=== PATIENT | male | born 1965 | race Caucasian/White ===

== ENCOUNTER 2023-10-24 21:05 | Emergency (ER) | payer OTHER ==
[~2023-10-24] VITALS: Ht 180.3 cm; Wt 158.1 kg
[2023-10-24 22:04] LABS: Urine Bacteria NONE SEEN /hpf (None Seen); Urine Blood Negative /uL (Negative); Urine Clarity Clear (Clear); Urine Color Yellow (Yellow); Urine Mucus FEW (None Seen); Urine Protein, UAD Negative (Negative); Urine Specific Gravity 1.028 (1.001-1.035); Urine Urobilinogen Normal (Negative); Urine WBC 1 /hpf (0 - 3); Urine pH 5.5 (5.0-8.0)
[2023-10-24 23:05] LABS: Basophils # (auto) 0.1 10 ^3/uL (0-0.2); Basophils % (auto) 0.6 % (0.0-2.0); Eosinophils # (auto) 0.3 10 ^3/uL (0-0.8); Eosinophils % (auto) 2.5 % (0.0-7.0); Hematocrit 46.8 % (41.0-53.0); Hemoglobin 15.5 g/dL (13.5-17.5); Lymphocytes # (auto) 4.4 10 ^3/uL (0.4-5.4); Lymphocytes % (auto) 36.9 % (10.0-50.0); Mean Corpuscular Hgb Conc. 33.2 g/dL (32.0-36.0); Mean Corpuscular Volume 90.4 fL (80.0-100.0); Monocytes # (auto) 0.8 10 ^3/uL (0-1.3); Monocytes % (auto) 6.4 % (0.0-12.0); Neutrophils # (auto) 6.4 10 ^3/uL (1.6-8.6); Neutrophils % (auto) 53.6 % (37.0-80.0); Nucleated Red Blood Cells % 0.2 %; Red Blood Cells 5.18 10^6/uL (4.5-5.90); Red Cell Distribution Width 13.1 % (11.8-14.3)
[2023-10-24 23:22] LABS: Alanine Aminotransferase 28 U/L (7-40); Albumin 4.5 g/dL (3.2-4.8); Alkaline Phosphatase 61 U/L (46-116); Anion Gap 6 (5-15); Aspartate Aminotransferase 22 U/L (13-40); Bilirubin, Total 0.7 mg/dL (0.2-1.0); Blood Urea Nitrogen 14 mg/dL (9-23); Carbon Dioxide 27 mmol/L (20-30); Chloride 106 mmol/L (98-107); Glucose 101 mg/dL (74-106); Potassium 4.1 mmol/L (3.5-5.1); Sodium 139 mmol/L (136-145)
[2023-10-24 23:23] LABS: Total Protein 6.8 g/dL (5.7-8.2)
[2023-10-25] MEDS ORDERED: LEVO500T91 PO (00:33)
[2023-10-25 00:53] VITALS: BP 125/99; PULSE 79; RESP 17; O2SAT 96
[2023-10-25] MEDS: KETOROLAC TROMETH 60MG/2ML VIAL IM ONE (01:00)
== END 2023-10-25 00:59 | disposition home or self-care (01) ==
LOC: ER 21:05
DX: N45.1 Epididymitis (principal); Z88.8 Allergy status to other drugs, medicaments and biological substances; Z91.09 Other allergy status, other than to drugs and biological substances
CPT/HCPCS: 36415; 76870; 80053; 81001; 85025; 96372; 99285; J1885

== ENCOUNTER 2025-04-09 08:40 | Emergency (ER) | payer OTHER ==
[~2025-04-09] VITALS: Ht 180.3 cm; Wt 136.5 kg
[~2025-04-09 08:40] MED LIST: LEVO500T91 PO
--- NOTE | 2025-04-09 09:13 | ED.PDOC ---
Sherif. trauma (HPI) HPI Comments A 59 YEAR OLD MALE PRESENTS TO THE ED WITH COMPLAINT OF RIGHT HIP PAIN, RIGHT KNEE PAIN, LEFT WRIST PAIN, AND RIGHT ANKLE PAIN STATUS POST FALL. PATIENT STATES HE ACCIDENTALLY SLIPPED ON WATER WHILE AT HOME DEPOT EARLIER TODAY AND LANDED ON THE RIGHT SIDE OF HIS BODY. PATIENT REPORTS HE IS NOW EXPERIENCING RIGHT HIP PAIN, RIGHT KNEE PAIN, RIGHT ANKLE PAIN AND LEFT WRIST PAIN THAT IS WORSE WITH MOVEMENT. PATIENT DENIES HEAD INJURY, NECK INJURY, LOC, FEVER, CHILLS, SHORTNESS OF BREATH, CHEST PAIN, ABDOMINAL PAIN, NAUSEA, VOMITING, HEADACHE, OR OTHER COMPLAINTS. NO OTHER SYMPTOMS OR MODIFYING FACTORS AT THIS TIME. PATIENT IS ALERT, ORIENTED X 4, AND HAS STEADY GAIT. Chief Complaint: Fall Injury Time Seen by MD: 08:49 Primary Care Provider: MICHAELIES Reviewed notes: Nurses Notes, Medications, Allergies Allergies: Coded Allergies: Acetaminophen (Verified Allergy, Unknown, 10/24/23) Dextromethorphan (Verified Allergy, Unknown, 10/24/23) Doxylamine (Verified Allergy, Unknown, 10/24/23) Ethanol (Verified Allergy, Unknown, 10/24/23) Pseudoephedrine (Verified Allergy, Unknown, 10/24/23) Home Meds Active Scripts Levofloxacin Hemihydrate (LEVOFLOXACIN) 500 Mg Tab, 1 TAB PO DAILY for 10 Days, #10 TAB Prov:BUSTER RUIZ [facility] 10/25/23 Information Source: Patient Mode of Arrival: Wheelchair Severity: Moderate Timing: Hours Duration: Since onset, Hours Prehospital treatment: None Location: (R) Ankle, (R) Hip, (R) Knee, (L) Wrist, Other (RIGHT HIP) Location of laceration: None Mechanism: Fall Associated signs and symtoms: None Past Medical History PAST MEDICAL HISTORY: HTN Surgical History: Denies all surgeries Family History Family History: Reviewed,noncontributory to illness, No family hx of Cancer, No family hx of DM, No family hx of Heart emir, No family hx of HTN, No family hx ofKidney emir, No family hx of Liver emir, No family hx of Lung emir, No family hx of Stroke Social History Smoker: Non-Smoker Alcohol: Denies ETOH Use Drugs: Denies Drug Use Lives In: Home Constitutional: denies: chills, diaphoresis, fatigue, fever, malaise, sweats, weakness, others EENTM: denies: blurred vision, double vision, ear bleeding, ear discharge, ear drainage, ear pain, ear ringing, eye pain, eye redness, hearing loss, mouth pain, mouth swelling, nasal discharge, nose bleeding, nose congestion, nose pain, photophobia, tearing, throat pain, throat swelling, voice changes, others Respiratory: denies: cough, hemoptysis, orthopnea, SOB at rest, shortness of breath, SOB with excertion, stridor, wheezing, others Cardiovascular: denies: chest pain, dizzy spells, diaphoresis, Dyspnea on exertion, edema, irregular heart beat, left arm pain, lightheadedness, palpitations, PND, syncope, others Gastrointestinal: denies: abdomen distended, abdominal pain, blood streaked bowels, constipated, diarrhea, dysphagia, difficulty swallowing, hematemesis, melena, nausea, poor appetite, poor fluid intake, rectal bleeding, rectal pain, vomiting, others Genitourinary: denies: burning, dysuria, flank pain, frequency, hematuria, incontinence, penile discharge, penile sore, pain, testicle pain, testicle swelling, urgency, others Neurological: denies: dizziness, fainting, headache, left sided numbness, left sided weakness, numbness, paresthesia, pre-existing deficit, right sided numbness, right sided weakness, seizure, speech problems, tingling, tremors, weakness, others Musculoskeletal: reports: joint pain, joint swelling, muscle pain, others (RIGHT HIP PAIN, RIGHT KNEE PAIN, RIGHT ANKLE PAIN, LEFT WRIST PAIN); denies: back pain, gout, muscle stiffness, neck pain Integumetry: denies: bruises, change in color, change in hair/nails, dryness, laceration, lesions, lumps, rash, wounds, others Allergic/Immunocompromised: denies: Difficulty Healing, Frequent Infections, Hives, Itching, others Hematologic/Lymphatic: denies: anemia, blood clots, easy bleeding, easy bruising, swollen glands, others Endocrine: denies: excessive hunger, excessive sweating, excessive thirst, excessive urination, flushing, intolerance to cold, intolerance to heat, unexplained weight gain, unexplained weight loss, others Psychiatric: denies: anxiety, bipolar disorder, depression, hopeless, panic disorder, schizophrenia, sleepless, suicidal, others All Other Systems: Reviewed and Negative Physical Exam General Appearance: Mild Distress, Obese HEENT: Normal ENT Inspection, PERRL/EOMI, Pharynx Normal, TMs Normal Neck: Full Range of Motion, Non-Tender, Normal, Normal Inspection Respiratory: Chest Non-Tender, Lungs Clear, No Accessory Muscle Use, No Respiratory Distress, Normal Breath Sounds Cardiovascular: No Edema, No JVD, No Murmur, No Gallop, Normal Peripheral Pulses, Regular Rate/Rhythm Breast Exam: Deferred Gastrointestinal: No Organomegaly, Non Tender, No Pulsatile Mass, Normal Bowel Sounds, Soft Genitalia: Deferred Pelvic: Deferred Rectal: Deferred Extremities: Decreased range of motion, No calf tenderness, Normal capillary refill, No pedal edema, Swelling (TENDERNESS AND SWELLING ON RIGHT KNEE AND RIGHT KNEE, NO BONY TENDERNESS AND DEFORMITY. ), Tender (TENDERNESS ON LEFT WRIST AND RIGHT HIP, NO BONY TENDERNESS, SWELLING AND DEFORMITY. ) Musculoskeletal : Apperance: Normal Neurologic: Alert, nursery school attendant II-XII nml as Tested, No Motor Deficits, Normal Affect, Normal Mood, No Sensory Deficits Cerebellar Function: Normal Reflexes: Normal Skin: Dry, Normal Color, Warm Peripheral Pulses: 2+ carotid (R), 2+ carotid (L), 2+ dorsalis pedis (R), 2+ dorsalis pedis (L) Lymphatic: No Adenopathy Was a procedure done? Was a procedure done?: No Differential Diagnosis Multiple Trauma: Fractures, Contusion, Other (MUSCLE STRAIN, SPRAIN) Neck Injury: N/A X-Ray, Labs, Meds, VS Vital Signs Date Time Temp Pulse Resp B/P (MAP) Pulse Ox O2 Delivery O2 Flow Rate FiO2 04/09/25 09:48 93 16 94 Room Air 04/09/25 09:48 98.1 93 16 158/81 (106) 94 98.1 04/09/25 08:41 98.4 96 18 150/93 96 98.4 Current Medications Medications (Trade) Dose Ordered Sig/Sylvia Route Start Time Stop Time Status Last Admin Ketorolac Tromethamine (Toradol Injection) 60 mg ONCE ONCE IM 04/09/25 10:15 04/09/25 10:16 DC 04/09/25 10:13 CLINICAL INDICATION: FALL; pain TECHNIQUE: 3 radiographic views of the left wrist were obtained. Comparison: None FINDINGS/IMPRESSION: There is no evidence of acute fracture or dislocation. The visualized joint space is well maintained. The alignment is anatomical. There is no radiopaque foreign body. ATED BY: PILI LLANES MD DICTATED DATE/TIME: 04/09/2547 SIGNED BY: PILI LLANES MD SIGNED DATE/TIME: 04/09/2547 CC: CLINICAL INDICATION: pain; FALL TECHNIQUE: 3 radiographic views of the right knee were obtained. Comparison: None FINDINGS/IMPRESSION: There is no evidence of acute fracture or dislocation. The visualized joint space is well maintained. The alignment is anatomical. There is no radiopaque foreign body. ATED BY: PILI LALNES MD DICTATED DATE/TIME: 04/09/2550 SIGNED BY: PILI LLANES MD SIGNED DATE/TIME: 04/09/2550 CC: CLINICAL INDICATION: pain; FALL TECHNIQUE: 1 radiographic views of the pelvis and 2 views of the right hip were obtained. Comparison: None FINDINGS/IMPRESSION: There is no evidence of acute fracture or dislocation. 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 ATED BY: PILI LLANES MD DICTATED DATE/TIME: 04/09/25950 SIGNED BY: PILI LLANES MD SIGNED DATE/TIME: 04/09/25950 CC: CLINICAL INDICATION: Pain TECHNIQUE: 3 radiographic views of the right ankle were obtained. Comparison: None FINDINGS/IMPRESSION: There is no evidence of acute fracture or dislocation. Soft tissue swelling about the right ankle. The visualized joint space is well maintained. The alignment is anatomical. There is no radiopaque foreign body. ATED BY: PILI LLANES MD DICTATED DATE/TIME: 04/09/2557 SIGNED BY: PILI LLANES MD SIGNED DATE/TIME: 04/09/25956 CC: X-Ray, Labs, Meds, VS Comment EXTERNAL MEDICAL RECORDS REVIEWED: [NONE] INDEPENDENT HISTORIANS: [NONE] SOCIAL DETERMINANTS OF HEALTH: [NONE] LABS ORDERED: NONE REVIEWED AND INTERPRETED RESULTS: NONE IMAGING ORDERED: XR HIP RT, XR ANKLE RT, XR KNEE RT, XR WRIST LT TREATMENTS ORDERED: TORADOL 60MG IM PROCEDURES PERFORMED: NONE CRITICAL CARE TIME: NONE I HAVE DISCUSSED THE PATIENT WITH THE ATTENDING PHYSICIAN DR. DYKES AND HE AGREES WITH THE PATIENT'S PLAN OF CARE AND DISPOSITION. BASED ON HISTORY OF PRESENT ILLNESS, AND PHYSICAL EXAM, PATIENT WILL BE DISCHARGED HOME. PT DECLINED PAIN RX. SHARED DECISION MAKING: PATIENT INSTRUCTED TO FOLLOW UP WITH PRIMARY CARE PROVIDER IN 1-2 DAYS FOR RE-EVALUATION OF SYMPTOMS. PATIENT VERBALIZES UNDERSTANDING TO RETURN TO ED FOR NEW OR WORSENING SYMPTOMS OR IF FOLLOW UP WITH PCP CANNOT BE OBTAINED. PATIENT FEELS COMFORTABLE GOING HOME AT THIS TIME. ALL QUESTIONS ADDRESSED AT TIME OF DISCHARGE. Images Reviewed?: Images reviewed and evaluated by me Time of 1ST Reevaluation: 11:30 Reevaluation 1ST: Improved Patient Education/Counseling: Diagnosis, Treatment, Need For Follow Up Family Education/Counseling: Diagnosis, Treatment, Need For Follow Up Medical Screening: No EMC Exist At This Time Departure 1 Departure Time of Disposition: 11:30 Impression: Primary Impression: Strain of muscle of right hip Qualified Codes: S76.011A - Strain of muscle, fascia and tendon of right hip, initial encounter Additional Impressions: Sprain of right knee Qualified Codes: S83.91XA - Sprain of unspecified site of right knee, initial encounter Sprain of right ankle Qualified Codes: S93.401A - Sprain of unspecified ligament of right ankle, initial encounter Sprain of left wrist Qualified Codes: S63.502A - Unspecified sprain of left wrist, initial encounter Status post fall Disposition: 01 HOME / SELF CARE / HOMELESS Condition: Stable Additional Instructions: FOLLOW-UP WITH PCP IN 1 TO 2 DAYS. TAKE MEDICATIONS PRESCRIBED. RETURN TO ED FOR ANY NEW OR WORSENING SYMPTOMS. Discharged With: Self, Relative Critical Care Note Critical Care Time?: No Stability Stability form required: No I personally scribed for RUBY NAYAK ([email or web address]) on 04/09/25 at 09:13. Electronically submitted by Librado Michaud ([email or web address]). I personally scribed for RUBY NAYAK ([email or web address]) on 04/09/25 at 09:16. Electronically submitted by Librado Michaud ([email or web address]). I personally scribed for RUBY NAYAK ([email or web address]) on 04/09/25 at 10:14. Electronically submitted by Librado Michaud ([email or web address]). RUBY NAYAK Apr 09, 2025 09:13
[2025-04-09 09:48] VITALS: BP 158/81; PULSE 93; RESP 16; TEMP 98.1; O2SAT 94
--- NOTE | 2025-04-09 09:50 | DVH ---
CLINICAL INDICATION: FALL; pain TECHNIQUE: 3 radiographic views of the left wrist were obtained. Comparison: None FINDINGS/IMPRESSION: There is no evidence of acute fracture or dislocation. The visualized joint space is well maintained. The alignment is anatomical. There is no radiopaque foreign body.
--- NOTE | 2025-04-09 09:53 | DVH ---
CLINICAL INDICATION: pain; FALL TECHNIQUE: 3 radiographic views of the right knee were obtained. Comparison: None FINDINGS/IMPRESSION: There is no evidence of acute fracture or dislocation. The visualized joint space is well maintained. The alignment is anatomical. There is no radiopaque foreign body.
--- NOTE | 2025-04-09 09:53 | DVH ---
CLINICAL INDICATION: pain; FALL TECHNIQUE: 1 radiographic views of the pelvis and 2 views of the right hip were obtained. Comparison: None FINDINGS/IMPRESSION: There is no evidence of acute fracture or dislocation. 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
--- NOTE | 2025-04-09 09:59 | DVH ---
CLINICAL INDICATION: Pain TECHNIQUE: 3 radiographic views of the right ankle were obtained. Comparison: None FINDINGS/IMPRESSION: There is no evidence of acute fracture or dislocation. Soft tissue swelling about the right ankle. The visualized joint space is well maintained. The alignment is anatomical. There is no radiopaque foreign body.
[2025-04-09] MEDS: KETOROLAC TROMETH 60MG/2ML VIAL IM ONE (10:13)
== END 2025-04-09 10:35 | disposition home or self-care (01) ==
LOC: ER 08:40
DX: S76.011A Strain of muscle, fascia and tendon of right hip, initial encounter (principal); S63.592A Other specified sprain of left wrist, initial encounter; S93.491A Sprain of other ligament of right ankle, initial encounter; S83.8X1A Sprain of other specified parts of right knee, initial encounter; I10 Essential (primary) hypertension; Z88.8 Allergy status to other drugs, medicaments and biological substances; W01.0XXA Fall on same level from slipping, tripping and stumbling without subsequent striking against object, initial encounter; Y93.89 Activity, other specified; Y92.89 Other specified places as the place of occurrence of the external cause; Y99.8 Other external cause status
CPT/HCPCS: 73110; 73502; 73562; 73610; 96372; 99284; J1885

== ENCOUNTER 2025-08-12 10:41 | Emergency (ER) | payer OTHER ==
[~2025-08-12] VITALS: Ht 180.3 cm; Wt 176.9 kg
[2025-08-12 10:45] VITALS: TEMP 98.5
--- NOTE | 2025-08-12 12:44 | ED.PDOC ---
Musculoskeletal HPI Comments A 59 YEAR OLD MALE PRESENTS TO THE ED WITH COMPLAINT OF RIGHT KNEE PAIN . PATIENT STATES HE HAS BEEN HAVING RIGHT KNEE PAIN FOR THE PAST 3 MONTHS AFTER SLIP AND FALL AT HOME DEPOT. PATIENT STATES THAT SINCE THE INJURY HE HAD AN MRI IN THE RIGHT KNEE WHICH SHOWED MULTIPLE TEARS AND A HEMATOMA. PATIENT STATES HE CAME TO THE ED TODAY DUE TO PERSISTENT AND WORSENING PAIN TO THE RIGHT KNEE. PATIENT DENIES FEVER, CHILLS, SHORTNESS OF BREATH, CHEST PAIN, ABDOMINAL PAIN, NAUSEA, VOMITING, HEADACHE, OR OTHER COMPLAINTS. NO OTHER SYMPTOMS OR MODIFYING FACTORS AT THIS TIME. PATIENT IS ALERT, ORIENTED X 4, AND HAS STEADY GAIT. Chief Complaint: Lower Extremity Time Seen by MD: 12:39 Primary Care Provider: DENIES Reviewed Notes: Nurses Notes, Medications, Allergies Allergies: Coded Allergies: Acetaminophen (Verified Allergy, Unknown, 10/24/23) Dextromethorphan (Verified Allergy, Unknown, 10/24/23) Doxylamine (Verified Allergy, Unknown, 10/24/23) Ethanol (Verified Allergy, Unknown, 10/24/23) Pseudoephedrine (Verified Allergy, Unknown, 10/24/23) Home Meds Active Scripts Levofloxacin Hemihydrate (LEVOFLOXACIN) 500 Mg Tab, 1 TAB PO DAILY for 10 Days, #10 TAB Prov:BUSTER RUIZ [facility] 10/25/23 Information Source: Patient Mode of Arrival: Ambulatory Brought in by: SELF Location: Right Extremity Location: Knee Timing: Months Prehospital treatment: None Severity: Severe Able to Move Extremity: Yes Bear Weight: Fully, Limited Pain: Severe Hand Dominance: Right Mechanism: Twisting Circumstances: Fall Onset of Symptoms: After Trauma Symptoms: Swelling, Pain DVT Risk Factors: NONE Last Tetanus: UTD, Unknown Associated signs and symptoms: Knee pain Past Medical History PAST MEDICAL HISTORY: HTN Surgical History: Denies all surgeries Family History Family History: Reviewed,noncontributory to illness, No family hx of Cancer, No family hx of DM, No family hx of Heart emir, No family hx of HTN, No family hx ofKidney emir, No family hx of Liver emir, No family hx of Lung emir, No family hx of Stroke Social History Smoker: Non-Smoker Alcohol: Denies ETOH Use Drugs: Denies Drug Use Lives In: Home Constitutional: denies: chills, diaphoresis, fatigue, fever, malaise, sweats, weakness, others EENTM: denies: blurred vision, double vision, ear bleeding, ear discharge, ear drainage, ear pain, ear ringing, eye pain, eye redness, hearing loss, mouth pain, mouth swelling, nasal discharge, nose bleeding, nose congestion, nose pain, photophobia, tearing, throat pain, throat swelling, voice changes, others Respiratory: denies: cough, hemoptysis, orthopnea, SOB at rest, shortness of breath, SOB with excertion, stridor, wheezing, others Cardiovascular: denies: chest pain, dizzy spells, diaphoresis, Dyspnea on exertion, edema, irregular heart beat, left arm pain, lightheadedness, palpitations, PND, syncope, others Gastrointestinal: denies: abdomen distended, abdominal pain, blood streaked bowels, constipated, diarrhea, dysphagia, difficulty swallowing, hematemesis, melena, nausea, poor appetite, poor fluid intake, rectal bleeding, rectal pain, vomiting, others Genitourinary: denies: burning, dysuria, flank pain, frequency, hematuria, incontinence, penile discharge, penile sore, pain, testicle pain, testicle swelling, urgency, others Neurological: denies: dizziness, fainting, headache, left sided numbness, left sided weakness, numbness, paresthesia, pre-existing deficit, right sided numbness, right sided weakness, seizure, speech problems, tingling, tremors, weakness, others Musculoskeletal: reports: joint pain (RIGHT KNEE ), joint swelling (RIGHT KNEE ); denies: back pain, gout, muscle pain, muscle stiffness, neck pain, others Integumetry: denies: bruises, change in color, change in hair/nails, dryness, laceration, lesions, lumps, rash, wounds, others Allergic/Immunocompromised: denies: Difficulty Healing, Frequent Infections, Hives, Itching, others Hematologic/Lymphatic: denies: anemia, blood clots, easy bleeding, easy bruising, swollen glands, others Endocrine: denies: excessive hunger, excessive sweating, excessive thirst, excessive urination, flushing, intolerance to cold, intolerance to heat, unexpla ined weight gain, unexplained weight loss, others Psychiatric: denies: anxiety, bipolar disorder, depression, hopeless, panic disorder, schizophrenia, sleepless, suicidal, others All Other Systems: Reviewed and Negative Physical Exam General Appearance: No Apparent Distress, Obese HEENT: Normal ENT Inspection, PERRL/EOMI, Pharynx Normal, TMs Normal Neck: Full Range of Motion, Non-Tender, Normal, Normal Inspection Respiratory: Chest Non-Tender, Lungs Clear, No Accessory Muscle Use, No Respira tory Distress, Normal Breath Sounds Cardiovascular: No Edema, No JVD, No Murmur, No Gallop, Normal Peripheral Pulses, Regular Rate/Rhythm Breast Exam: Deferred Gastrointestinal: No Organomegaly, Non Tender, No Pulsatile Mass, Normal Bowel Sounds, Soft Genitalia: Deferred Pelvic: Deferred Rectal: Deferred Extremities: Decreased range of motion, No calf tenderness, Normal capillary refill, Normal range of motion, No pedal edema, Tender (AND MILD SWELLING ON RIGHT KNEE, NO BONY TENDERNESS AND DEFORMITY. ) Musculoskeletal : Apperance: Normal Neurologic: Alert, chief station engineer II-XII nml as Tested, No Motor Deficits, Normal Affect, Normal Mood, No Sensory Deficits Cerebellar Function: Normal Reflexes: Normal Skin: Dry, Normal Color, Warm Peripheral Pulses: 2+ carotid (R), 2+ carotid (L), 2+ dorsalis pedis (R), 2+ dorsalis pedis (L) Lymphatic: No Adenopathy Was a procedure done? Was a procedure done?: No Differential Diagnosis EXT Differential Diagnosis: Fracture, Sprain, Contusion, Arthritis, Bursitis, Other (INTERNAL DERANGEMENT OF RIGHT KNEE ) X-Ray, Labs, Meds, VS Vital Signs Date Time Temp Pulse Resp B/P (MAP) Pulse Ox O2 Delivery O2 Flow Rate FiO2 08/12/25 13:03 87 87 96 Room Air 08/12/25 12:54 88 20 162/94 08/12/25 12:24 88 20 162/94 (116) 95 08/12/25 10:45 98.5 93 22 221/116 95 98.5 Current Medications Medications (Trade) Dose Ordered Sig/Sylvia Route Start Time Stop Time Status Last Admin Hydromorphone HCl (Dilaudid Injection) 2 mg ONCE ONCE IM 08/12/25 12:45 08/12/25 12:46 DC 08/12/25 12:54 Ondansetron HCl (Zofran Po) 4 mg ONCE ONCE PO 08/12/25 12:45 08/12/25 12:46 DC 08/12/25 12:55 X-Ray, Labs, Meds, VS Comment COURSE: EXTERNAL MEDICAL RECORDS REVIEWED: [NONE] INDEPENDENT HISTORIANS: [NONE] SOCIAL DETERMINANTS OF HEALTH: [NONE] LABS ORDERED: NONE REVIEWED AND INTERPRETED RESULTS: NONE IMAGING ORDERED: NONE TREATMENTS ORDERED: DILAUDID 2MG IM ZOFRAN 4 MG IM PROCEDURES PERFORMED: NONE CRITICAL CARE TIME: NONE I HAVE DISCUSSED THE PATIENT WITH THE ATTENDING PHYSICIAN DR. AYOUB AND HE AGREES WITH THE PATIENT'S PLAN OF CARE AND DISPOSITION. BASED ON HISTORY OF PRESENT ILLNESS, AND PHYSICAL EXAM, PATIENT WILL BE DISCHARGED HOME. PT DECLINED PAIN RX. SHARED DECISION MAKING: DISCUSSED WITH PATIENT THAT THEIR WORKUP WAS NORMAL. PATIENT INSTRUCTED TO FOLLOW UP WITH PRIMARY CARE PROVIDER IN 1-2 DAYS FOR RE- EVALUATION OF SYMPTOMS. PATIENT VERBALIZES UNDERSTANDING TO RETURN TO ED FOR NEW OR WORSENING SYMPTOMS OR IF FOLLOW UP WITH PCP CANNOT BE OBTAINED. PATIENT FEELS COMFORTABLE GOING HOME AT THIS TIME. ALL QUESTIONS ADDRESSED AT TIME OF DISCHARGE. Time of 1ST Reevaluation: 13:10 Reevaluation 1ST: Improved Patient Education/Counseling: Diagnosis, Treatment, Need For Follow Up Family Education/Counseling: Diagnosis, Treatment, Need For Follow Up Medical Screening: No EMC Exist At This Time Departure 1 Departure Time of Disposition: 13:26 Impression: Primary Impression: Internal derangement of right knee Additional Impression: Encounter for pain management Disposition: 01 HOME / SELF CARE / HOMELESS Condition: Stable Additional Instructions: INSTRUCTIONS: FOLLOW-UP WITH PCP IN 1 TO 2 DAYS. TAKE MEDICATIONS PRESCRIBED. RETURN TO ED FOR ANY NEW OR WORSENING SYMPTOMS. Discharged With: Self, Relative Critical Care Note Critical Care Time?: No Stability Stability form required: No Heart Score Heart Score: Heart Score Response (Comments) Value History N/A 0 EKG N/A 0 Age N/A 0 Risk Factors N/A 0 Troponin N/A 0 Total 0 I personally scribed for RUBY NAYAK ([email or web address]) on 08/12/25 at 12:44. Electronically submitted by Nita BUTLER). RUBY NAYAK Aug 12, 2025 12:44
[2025-08-12 12:54] VITALS: BP 162/94
[2025-08-12] MEDS: HYDROmorphone HCL 2 MG/ML VL/or syr IM ONE (12:54)
[2025-08-12] MEDS: ONDANSETRON ODT 4 MG TAB PO ONE (12:55)
[2025-08-12 13:03] VITALS: PULSE 87; RESP 87; O2SAT 96
== END 2025-08-12 13:55 | disposition home or self-care (01) ==
LOC: ER 10:41
DX: M23.91 Unspecified internal derangement of right knee (principal); G89.29 Other chronic pain; I10 Essential (primary) hypertension; Z79.899 Other long term (current) drug therapy
CPT/HCPCS: 96372; 99283; J1171; Q0162